=== PATIENT | female | born 1975 | race African-American/Black ===

== ENCOUNTER 2016-10-13 18:37 | Emergency (ER) | payer MEDICARE ==
[~2016-10-13] VITALS: Ht 165.1 cm; Wt 108.9 kg
[2016-10-13 19:30] VITALS: BP 149/86
[2016-10-13] MEDS ORDERED: LISI1TAB5 PO (19:42)
--- NOTE | 2016-10-13 19:43 | PHYS DOC ---
Past Medical History Past Medical History: Asthma, Hypertension, Other Past Surgical History: No Surgical History Alcohol Use: None Drug Use: None Adult General Chief Complaint Chief Complaint: HYPERTENSION HPI HPI Patient is a 41 year old female who comes to the ED with the concern about her blood pressure being too high. The patient recently saw her eye doctor who checked her blood pressure and told her it was too high and she needed to get on something for it. The patient was seen here in November 2015 with elevated blood pressure, she was prescribed lisinopril 20 mg daily which she did take for 1 month and states that she tolerated it fine and it did help her blood pressure. She meant to follow-up with a PCP but she never got around to it. Then she recently saw her eye doctor, she does have an appointment coming up on November 16 to see a new primary care doctor, but she became concerned that she should be addressing her elevated blood pressure between now and then. Right now she feels fine. She did have a little headache this morning but now its gone. She has no complaints of chest pain, shortness of air, or swelling. Review of Systems Review of Systems Constitutional: Denies fever or chills [] Eyes: Denies change in visual acuity, redness, or eye pain [] HENT: Denies nasal congestion or sore throat [] Respiratory: Denies cough or shortness of breath [] Cardiovascular: Denies chest pain GI: Denies abdominal pain, nausea, vomiting, bloody stools or diarrhea [] : Denies dysuria or hematuria [] Musculoskeletal: Denies back pain or joint pain [] Integument: Denies rash or skin lesions [] Neurologic: She had a mild headache this morning which is now gone Allergies Allergies Allergies Coded Allergies Type Severity Reaction Last Updated Verified No Known Drug Allergies 11/21/15 No Physical Exam Physical Exam Constitutional: Well developed, well nourished, no acute distress, non-toxic appearance. Alert, mentating normally. First blood pressure was 164/94. Repeat was 149/86 HENT: Normocephalic, atraumatic, bilateral external ears normal, nose normal. [ ] Eyes: conjunctiva normal, no discharge. [] Neck: Normal range of motion, no stridor. [] Cardiovascular:Heart rate regular rhythm, no murmur [] Lungs & Thorax: Bilateral breath sounds clear to auscultation [] Skin: Warm, dry, no erythema, no rash. [] Extremities: No tenderness, no cyanosis, no clubbing, ROM intact, no edema. [] Neurologic: Alert and oriented X 3, normal motor function, normal sensory function, no focal deficits noted. [] Current Patient Data Vital Signs Vital Signs Date Time Temp Pulse Resp B/P Pulse Ox O2 Delivery O2 Flow Rate FiO2 10/13/16 18:55 98 94 18 164/94 99 Room Air 98.0 EKG EKG [] Radiology/Procedures Radiology/Procedures [] Course & Med Decision Making Course & Med Decision Making Pertinent Labs and Imaging studies reviewed. (See chart for details) 41-year-old lady with a history of elevated blood pressure comes in with a moderately elevated blood pressure that is asymptomatic. I discussed with the patient the importance of long-term control of her blood pressure, not just 30 days here in 30 days there. She insists that she will follow up with the primary care doctor, however, her appointment is scheduled for November 16, so she will need both a 30 day supply and one refill. I agreed to do that this time but I was very specific with the patient that she needs to get further prescriptions for antihypertensives from her primary care doctor and she agrees to that plan. [] Dragon Disclaimer Dragon Disclaimer This electronic medical record was generated, in whole or in part, using a voice recognition dictation system. Departure Departure Impression: Primary Impression: Hypertension Disposition: 01 HOME, SELF-CARE Condition: STABLE Referrals: UNKNOWN PCP NAME (PCP) Patient Instructions: Hypertension, [id number] Additional Instructions: As we discussed, it is very important to follow up with your primary care doctor for long-term management of your blood pressure. Be sure and keep the appointment you have on November 16. Scripts Lisinopril/Hydrochlorothiazide (Lisinopril-Hctz 20-12.5 Mg Tab)1 Each Tablet1 Tab PO DAILY #30 TAB Ref 1 For high blood pressure Prov:CHRISTINE NOVAK MD 10/13/16 CHRISTINE NOVAK MD Oct 13, 2016 19:43
== END 2016-10-13 19:47 | disposition home or self-care (01) ==
LOC: ER 18:37
DX: I10 Essential (primary) hypertension (principal); J45.909 Unspecified asthma, uncomplicated
CPT/HCPCS: 99283

== ENCOUNTER 2016-11-03 21:06 | Emergency (ER) | payer MEDICARE ==
[~2016-11-03] VITALS: Ht 165.1 cm; Wt 108.9 kg
[~2016-11-03 21:06] MED LIST: LISI1TAB5 PO
[2016-11-03 22:08] VITALS: BP 142/96
[2016-11-03] MEDS ORDERED: TRAM1TAB49 PO (23:14)
--- NOTE | 2016-11-03 23:14 | PHYS DOC ---
Past Medical History Past Medical History: Asthma, Hypertension, Other Past Surgical History: No Surgical History Alcohol Use: None Drug Use: None Adult General Chief Complaint Chief Complaint: FINGER INJURY HPI HPI Patient is a 41 year old female who presents with an antifungal the old [place] then that began 3 weeks ago after she smashed her right middle finger in a car door. Review of Systems Review of Systems Constitutional: Denies fever or chills [] Musculoskeletal: Right middle finger pain Integument: Denies rash or skin lesions [] Neurologic: Denies headache, focal weakness or sensory changes [] Endocrine: Denies polyuria or polydipsia [] Allergies Allergies Allergies Coded Allergies Type Severity Reaction Last Updated Verified No Known Drug Allergies 11/21/15 No Physical Exam Physical Exam Constitutional: Well developed, well nourished, no acute distress, non-toxic appearance. [] Skin: Warm, dry, no erythema, no rash. [] Back: No tenderness, no CVA tenderness. [] Extremities: Right middle finger with no obvious deformity. There is slight hyperflexion of the right middle finger distal and which patient states it's normal. Slight tenderness on palpation of the right middle finger PIP joint. Full range of motion to the right middle finger. +2 right radial pulse. Cap refill less than 2 seconds the right middle finger. Adequate sensation to the right middle finger. Neurologic: Alert and oriented X 3, normal motor function, normal sensory function, no focal deficits noted. [] Psychologic: Affect normal, judgement normal, mood normal. [] Current Patient Data Vital Signs Vital Signs Date Time Temp Pulse Resp B/P Pulse Ox O2 Delivery O2 Flow Rate FiO2 11/03/16 22:08 98.5 85 18 98 Room Air 98.5 EKG EKG [] Radiology/Procedures Radiology/Procedures [] Course & Med Decision Making Course & Med Decision Making Pertinent Labs and Imaging studies reviewed. (See chart for details) Patient is in the ED with contusion of the right middle finger after it got smashed in a door 3 weeks ago. X-rays of the right middle finger interpreted by Dr. Moore were noted for hyperflexion of the right middle finger distal and which patient states is normal, otherwise no acute findings. Splint was applied to the right middle finger by the ED RN, neurovascular exam done by me is normal , cap refill less than 2 seconds. Discharged with Ultracet. Follow-up with Ortho in one week if pain continues. Ice elevation encouraged. Dragon Disclaimer Dragon Disclaimer This electronic medical record was generated, in whole or in part, using a voice recognition dictation system. Departure Departure Impression: Primary Impression: Contusion of right middle finger Disposition: 01 HOME, SELF-CARE Condition: STABLE Referrals: NO PCP (PCP) FABIOLA WILSON MD See him in one week Patient Instructions: Contusion Additional Instructions: You have finger contusion. Ice and elevate the finger. Keep the splint as needed. Follow-up with the provided orthopedic doctor in one week. Scripts Tramadol Hcl/Acetaminophen (Ultracet Tablet)1 Each Tablet1 Tab PO Q6HRS #30 TAB Prov:ANJEL BRADLEY APRN 11/03/16 Problem Qualifiers Primary Impression: Contusion of right middle finger Encounter type: initial encounter Damage to nail status: without damage Qualified Code: S60.031A - Contusion of right middle finger without damage to nail, initial encounter ANJEL BRADLEY APRN Nov 03, 2016 23:14
--- NOTE | 2016-11-04 07:43 | RAD ---
Right middle finger, 3 views, 11/03/2016: History: Injury No fracture or dislocation is identified. The soft tissues are unremarkable. IMPRESSION: No significant abnormality is detected.
== END 2016-11-03 23:18 | disposition home or self-care (01) ==
LOC: ER 21:06
DX: S60.031A Contusion of right middle finger without damage to nail, initial encounter (principal); I10 Essential (primary) hypertension; J45.909 Unspecified asthma, uncomplicated; W23.0XXA Caught, crushed, jammed, or pinched between moving objects, initial encounter; Y93.89 Activity, other specified; Y92.89 Other specified places as the place of occurrence of the external cause; Y99.8 Other external cause status
CPT/HCPCS: 29125; 73140; 99284-25

== ENCOUNTER 2016-11-12 19:46 | Emergency (ER) | payer MEDICARE ==
[~2016-11-12 19:46] MED LIST changes: +TRAM1TAB49 PO
[2016-11-12 19:53] VITALS: BP 142/96
[2016-11-12] MEDS ORDERED: FLUORESCEIN OPHTH TEST STRIP. OS ONE (20:00)
[2016-11-12] MEDS ORDERED: TETRACAINE 0.5% OPHTH SOLUTION 4ML BOTTLE. OS ONE (20:00)
[2016-11-12] MEDS ORDERED: EYE-STREAM OPHTH SOLUTION 120 ML BOTTLE. OS ONE (20:00)
--- NOTE | 2016-11-12 20:16 | PHYS DOC ---
Past Medical History Past Medical History: Asthma, Hypertension, Other Past Surgical History: Other Additional Past Surgical Histo: CORNEA TRANSPLANT left eye Alcohol Use: None Drug Use: None Adult General Chief Complaint Chief Complaint: EYE PROBLEMS HPI HPI Patient is a 41 year old female presents emergency department stating that she had a left corneal transplant completed with sutures removed within the last 2 weeks. Patient states she was leaning over to brush her teeth when she went to spit the mouth secretions out she hit her left eye with the faucet. She states she is having blurred vision at the current time. She states she's had some clear drainage. Patient is alert and oriented the current time. Review of Systems Review of Systems Constitutional: Denies fever or chills [] Eyes: C/o blurred vision with the left eye with clear drainage HENT: Denies nasal congestion or sore throat [] Respiratory: Denies cough or shortness of breath [] Cardiovascular: No additional information not addressed in HPI [] GI: Denies abdominal pain, nausea, vomiting, bloody stools or diarrhea [] : Denies dysuria or hematuria [] Musculoskeletal: Denies back pain or joint pain [] Integument: Denies rash or skin lesions [] Neurologic: Denies headache, focal weakness or sensory changes [] Current Medications Current Medications Current Medications Medications (Trade) Dose Ordered Sig/Ck Start Time Stop Time Status Last Admin Dose Admin Eye Irrigation Solution (Eye-Stream) 120 ml 1X ONCE 11/12/16 20:00 2 20:07 DC 11/12/16 20:25 120 ML Fluorescein Sodium (Ful-Brigid) 1 strip 1X ONCE 11/12/16 20:00 11/12/16 20:07 DC 11/12/16 20:25 1 STRIP Tetracaine HCl (Tetracaine) 1 drop 1X ONCE 11/12/16 20:00 11/12/16 20:07 DC 11/12/16 20:25 1 DROP Allergies Allergies Allergies Coded Allergies Type Severity Reaction Last Updated Verified No Known Drug Allergies 11/21/15 No Physical Exam Physical Exam Constitutional: Well developed, well nourished, no acute distress, non-toxic appearance. [] HENT: Normocephalic, atraumatic, bilateral external ears normal, oropharynx moist, no oral exudates, nose normal. [] Eyes: PERRLA, EOMI, conjunctiva normal, clear discharge. [] Neck: Normal range of motion, no tenderness, supple, no stridor. [] Cardiovascular:Heart rate regular rhythm, no murmur [] Lungs & Thorax: Bilateral breath sounds clear to auscultation [] Skin: Warm, dry, no erythema, no rash. [] Back: No tenderness Extremities: No tenderness, no cyanosis, no clubbing, ROM intact, no edema. [] Neurologic: Alert and oriented X 3, normal motor function, normal sensory function, no focal deficits noted. [] Psychologic: Affect normal, judgement normal, mood normal. [] Current Patient Data Vital Signs Vital Signs Date Time Temp Pulse Resp B/P Pulse Ox O2 Delivery O2 Flow Rate FiO2 11/12/16 19:53 98.2 83 18 97 Room Air 98.2 EKG EKG [] Radiology/Procedures Radiology/Procedures [] Course & Med Decision Making Course & Med Decision Making Pertinent Labs and Imaging studies reviewed. (See chart for details) Dr. Hanna was placed into the left eye fluorescein was used with minimal uptake noted around the lens area. Call was placed to our on-call customer associate to call back in regards to the patient. He feels that the customer associate that the patient seen for corneal transplants need to be notified. [id number] Tse answering service with Dr Idania Cain to return call from his office. [id number] Cain in regards to patient's corneal transplant and hitting her eye. Provided her with the visual information as the patient has had decreased vision. Also provided her with patient's status with antibiotics and steroids that she hasn't home after having the sutures removed. Dr. Garibay would like her to follow up Tuesday morning at 9:00. She'll like her to use the antibiotics and steroids that she had when the sutures removed as directed. She is also given specific information that if her eyesight should become worse if she should have aggressive fluid severe pain or severe redness she immediately needs to contact Dr. Garibay at [phone]. She was provided with this information. She was provided with signs and symptoms to return back to the emergency department. Patient agrees with discharge instructions treatment regimens and follow-up recommendations. [] Dragon Disclaimer Dragon Disclaimer This electronic medical record was generated, in whole or in part, using a voice recognition dictation system. Departure Departure Impression: Primary Impression: Left eye injury Disposition: HOME, SELF-CARE Condition: STABLE Referrals: NO PCP (PCP) Patient Instructions: Eye Injury-Brief Additional Instructions: Home to rest. Continue to use the antibiotics and steroids that you have been provided when her sutures removed from ear corneal and transplant as prescribed. You need to immediately call Dr. Cain at [phone] if you should have severe eye pain any gush of fluids any worsening of your eyesight or any redness to the eye. Follow-up at 9 AM Tuesday morning for a follow-up visit in regards to your eye. Return back to the emergency department for signs and symptoms of become worse. ADAM ARELLANO NP Nov 12, 2016 20:15
[2016-11-12] MEDS ORDERED: HYDR-971 PO (21:45)
[2016-11-12] MEDS ORDERED: HYDROCODONE/APAP 5/325MG TABLET. PO ONE (22:00)
== END 2016-11-12 21:48 | disposition home or self-care (01) ==
LOC: ER 19:46
DX: S05.92XA Unspecified injury of left eye and orbit, initial encounter (principal); J45.909 Unspecified asthma, uncomplicated; I10 Essential (primary) hypertension; Z94.7 Corneal transplant status; W22.8XXA Striking against or struck by other objects, initial encounter; Y93.89 Activity, other specified; Y92.89 Other specified places as the place of occurrence of the external cause; Y99.8 Other external cause status
CPT/HCPCS: 99284